=== PATIENT | male | born 1980 | race Caucasian/White ===

== ENCOUNTER 2017-04-28 19:57 | Emergency (ER) | payer MEDICARE, MEDICAID, SELFPAY ==
[2017-04-28 19:57] VITALS: BP 140/87; PULSE 109; RESP 15; TEMP 36.7; BMI 18.6
--- NOTE | 2017-04-28 20:15 | ED.VISSUMM ---
- ER Visit Summary Date of Service: 04/28/17 Chief Complaint: [] Malaise, narcotic withdrawal History of Present Illness: The patient is a 37 M [] history of Crohn's presents with symptoms of narcotic withdrawal after discontinuing his methadone use 3 days ago. Patient reports he decided he no longer wanted to take methadone and quit on his own. He reports being provided clonidine tablets to help with his withdrawal symptoms from his pain management doctor. Patient reports he is here for symptom relief. Reports mild abdominal discomfort. Denies vomiting. Denies fevers. No other complaints at this time. Physical Examination: [] Afebrile, vital signs stable. Cardiovascular exam is regular rate and rhythm. Lungs are clear to auscultation. Abdomen is soft and nontender. No lower extremity edema. Test Results: [] CMP: Within normal limits. Alk phos mildly elevated at 191. Emergency Department Course and Treatment: [] Patient given intravenous fluids, Phenergan, Toradol, Ativan. On serial exam patient had improvement of symptoms. Patient was discharged with a short-term solution for Phenergan. Treatment Plan: [] Follow-up with chest painting leader. Disposition: [] Discharge, stable. Impression: [] Narcotic withdrawal Nausea history of Crohn's This note was generated with [employer] dictation software. It may contain incorrect words, spelling, and punctuation that were not noted in review of the chart prior to signing ED Disposition - Plan for ED Patient: Chief Complaint: General Illness Referrals: Fran Walker DO [Primary Care Provider] -
[2017-04-28] MEDS: 0.9% Normal Saline 1,000 ML 1000 ML IV (20:18)
[2017-04-28] MEDS: Ketorolac 30 MG/ML Syringe IV (20:24)
[2017-04-28] MEDS: LORazepam 2 MG/ML Syringe 1 MG IV (20:25)
[2017-04-28 20:41] LABS: ALB/GLOB Ratio 0.9 RATIO (0.9-2.4); AST(SGOT) 26 U/L (15-37); Alanine Aminotransfer ALT/SGPT 65 U/L (16-61); Albumin, Serum 3.7 g/dL (3.2-5.0); Alkaline Phosphatase 191 U/L (45-117); Anion Gap 9 (5-15); BUN 8 mg/dL (7-18); BUN/Creat Ratio 8.8 RATIO (10-20); Calcium,Total 8.8 mg/dL (8.5-10.1); Chloride 108 mmol/L (98-107); EST Glomerular Filtration Rate 101 mL/min (>60); Est Glom Filt Rate - Afr Amer 123 mL/min (>60); Estimated Creatinine Clearance 84.52 ml/min; Globulin 4.2 g/dL (2.2-4.2); Glucose 136 mg/dL (74-106); Potassium 3.6 mmol/L (3.5-5.1); Protein, Total 7.9 g/dL (6.4-8.2); Sodium Level 141 mmol/L (136-145)
[2017-04-28 20:59] VITALS: BP 112/76; PULSE 81; RESP 21; O2SAT 96
--- NOTE | 2017-04-28 21:15 | ED.DEP ---
ED Disposition - Plan for ED Patient: Disposition: Home or Assisted Living Chief Complaint: General Illness Instructions: ED Withdrawal Narcotic Prescriptions: ProMETHAzine [Phenergan] 25 mg PO Q4H PRN PRN #20 tab PRN Reason: Nausea Referrals: Fran Walker DO [Primary Care Provider] -
[2017-04-28 21:34] VITALS: BP 124/83; PULSE 87; RESP 16; O2SAT 97
== END 2017-04-28 21:36 | disposition home or self-care (01) ==
PROVIDERS: Emergency Provider Emergency Medicine; Family Provider Student in an Organized Health Care Education/Training Program; PCP Student in an Organized Health Care Education/Training Program
DX: F11.23 Opioid dependence with withdrawal (principal); R11.0 Nausea; K50.90 Crohn's disease, unspecified, without complications; F32.9 Major depressive disorder, single episode, unspecified; Z72.0 Tobacco use; Z79.899 Other long term (current) drug therapy
CPT/HCPCS: 80053; 96361; 96374; 96375; 99284; J7030

== ENCOUNTER 2022-09-14 09:15 | Emergency (ER) | payer MEDICARE, MEDICAID, SELFPAY ==
[2022-09-14 09:17] VITALS: BP 125/91; PULSE 88; RESP 20; TEMP 35.9; O2SAT 100; BMI 24.3
--- NOTE | 2022-09-14 09:44 | CT_ITS ---
STUDY: CT ABDOMEN AND PELVIS WITHOUT CONTRAST REASON FOR EXAM: Male, 42 years old. Flank pain RADIATION DOSAGE (If Supplied By Facility): CTDIvol = ( 6.04 ) mGy, DLP = ( 314.11 ) mGycm TECHNIQUE: Transaxial images were obtained from the dome of the diaphragm to the symphysis pubis without oral contrast, and without intravenous contrast. Sagittal and coronal images were reconstructed. Individualized dose optimization techniques were used for this CT. COMPARISON: 2017 FINDINGS: The visualized lung bases are unremarkable. The visualized portions of the heart are within normal limits. Normal liver. Normal gallbladder and extrahepatic biliary system. Normal spleen. Normal pancreas. Normal bilateral adrenal glands. Right kidney shows mild hydronephrosis and hydroureter without perinephric or periureteral inflammatory stranding. Findings due to a 3 mm stone in the distal right ureter seen on axial image 131 and coronal recon image 60. Left kidney is free of obstructive uropathy or suspicious solid renal lesion. Normal visualized stomach. Normal small intestine. Normal colon. There are surgical clips in the region of the appendix consistent with a prior appendectomy. Normal abdominal aorta. Normal inferior vena cava. Normal retroperitoneum. Normal urinary bladder. Normal abdominal wall. Normal osseous structures. CT/Abdomen/Pelvis without Cont IMPRESSION: 3 mm calcification in the distal right ureter causing mild right hydronephrosis and hydroureter without perinephric or periureteral inflammatory stranding Electronically Signed: Martinez Norton MD at 10:56 EDT ,
--- NOTE | 2022-09-14 09:45 | ED.VIS.GI ---
HPI HPI - GI History of Present Illness Chief Complaint: Abd Pain Narrative Narrative: 42-year-old male, past medical history of Crohn disease, states he has not taken anything for his Crohn disease after he had surgery at [facility] 3 years ago, presents with sudden onset of right flank pain radiating towards his groin. Symptoms began at 730 this morning, around 2 hours ago. He denies any fevers or chills. No nausea or vomiting. No diarrhea. No hematuria or dysuria. He states its not does not feel like his Crohn disease. He denies any exacerbating or alleviating factors. Sometimes the pain is sharp and stabbing, but other dull and achy mainly in his right flank towards his right hip area and towards his pelvis. He thought that it may have been improving, but presents via EMS because of the continued right flank pain. PFSH PFSH Home Medications alprazolam 1 mg tablet (Xanax) 1 mg PO TID 10/20/14 [History Last Taken 11/02/14] methadone 10 mg tablet 5 mg PO Q4H 10/20/14 [History Last Taken 11/02/14] quetiapine 50 mg tablet (Seroquel) 50 mg PO QHS 11/02/14 [History Last Taken 11/01/14] sertraline 25 mg tablet (Zoloft) 25 mg PO QHS 11/02/14 [History Last Taken 11/01/14] polyethylene glycol 3350 17 gram oral powder packet 17 g PO DAILY PRN Constipation 03/21/15 [History Last Taken Unknown] adalimumab 40 mg/0.8 mL subcutaneous syringe kit (Humira) 40 mg SQ Q14D 03/28/17 [History Last Taken Unknown] promethazine 25 mg tablet 25 mg PO Q4H PRN PRN Nausea #20 tabs 04/28/17 [Rx Last Taken Unknown] Allergy/AdvReac Type Severity Reaction Status Date / Time infliximab [From Remicade] Allergy Hives Verified 09/14/22 09:16 Social History Smoking Status: Current every day smoker tobacco type: cigarettes ROS ROS ED ROS Narrative Constitutional: No fever, no chills. HEENT: No sore throat. No neck pain. No loss of vision. No rhinorrhea. Cardiovascular: No chest pain. No palpitations. No pedal edema. Respiratory: No cough, no shortness of breath. Abdominal: Right flank pain. No nausea. No vomiting. Genitourinary: No dysuria. No hematuria. Musculoskeletal: No myalgias. No arthralgias. Neurologic: No headaches. No dizziness. No lightheadedness. Skin: No rash. No change in color. Psychiatric: No depression. No anxiety. EXAM Physical Exam Narrative Exam Narrative: Afebrile. Vital signs noted. HEENT: Normocephalic. Atraumatic. PERRL, EOMI. Neck soft and supple. No point tenderness or step off. Cardiovascular: Regular rate and rhythm. No murmurs, rubs, or gallops appreciated. Respiratory: No tachypnea. Lungs clear to auscultation bilaterally. Gastrointestinal: Abdomen soft, nontender, with normoactive bowel sounds. No rebound or guarding. Neurological: Awake. Alert. Nonfocal, nonlateralizing. Skin: No rash. Normal color. No pallor. Musculoskeletal: No pedal edema. Full range of motion extremities. Const Vital Signs: 09/14/22 09:17 09/14/22 11:15 Temperature 96.7 F L Temperature Source Temporal Pulse Rate 88 Respiratory Rate 20 H 18 Blood Pressure 125/91 H Blood Pressure Mean 102 Pulse Ox 100 Oxygen Delivery Method Room Air MDM MDM MDM Narrative Medical decision making narrative: Viewed the prior records. Patient states he had an appendectomy with his bowel surgery, hence I am not concerned for appendicitis. In the differential is also ureterolithiasis versus Crohn exacerbation, but he is not having the same pain as he did with his Crohn disease. I do feel that CT imaging is warranted in this case. He was initially given Toradol and IV fluids at 250 mL/h. I will check a urinalysis along with CBC and BMP. I reviewed the patient's laboratory work, he has slightly elevated white count of 12.5 which I think is nonspecific, hemoglobin normal at 14.8, hematocrit 45.5, chloride 111 and slightly elevated but normal sodium of 141, potassium normal at 3.6. Urinalysis is positive for occult blood but negative nitrites, 25-50 RBCs with 0-5 white cells. I do not feel that antibiotics are indicated. I reviewed the CT imaging and reviewed the CT report which shows that there is a 3 mm calculus in the distal ureter on the right causing hydronephrosis and hydroureter. When I went to inform the patient of his test results, it looks as if he has eloped from the emergency department. His IV bag was present and his gown was on the bed. Plan was going to be to have him follow-up with urology and for me to write him pain medications. However, patient eloped from the emergency department prior to hearing his results and formal discharge. Patient had been in stable condition. History & Record Review Additional record(s) reviewed:: Prior ED visit Lab Data Attestation: I reviewed the patient's lab results. Labs: Laboratory Results - last 24 hr 09/14/22 09/14/22 09/14/22 09:50 09:50 10:21 WBC 12.5 H RBC 4.93 Hgb 14.8 Hct 45.5 MCV 92.3 MCH 30.0 MCHC 32.5 RDW Std Deviation 46.5 H RDW Coeff of Andre 13.8 Plt Count 372 MPV 9.3 Immature Gran % (Auto) 0.500 Neut % (Auto) 79.8 H Lymph % (Auto) 10.2 L [place] % (Auto) 6.6 Eos % (Auto) 2.4 Baso % (Auto) 0.5 Absolute Neuts (auto) 10.0 H Absolute Lymphs (auto) 1.28 Nucleated RBC % 0 Sodium 141 Potassium 3.6 Chloride 111 H Carbon Dioxide 24.0 Anion Gap 6 BUN 11 Creatinine 1.01 Estim Creat Clear Calc 81.41 Est GFR (MDRD) Af Amer 105 Est GFR (MDRD) Non-Af 87 BUN/Creatinine Ratio 10.9 Glucose 94 Calcium 7.7 L Urine Color Yellow Urine Clarity Sl. Cloudy Urine pH 6.5 Ur Specific [place] 1.020 Urine Protein 30 H Urine Glucose (UA) Normal Urine Ketones 5 H Urine Occult Blood 250 H Urine Nitrite Negative Urine Bilirubin 1 H Urine Urobilinogen 1 H Ur Leukocyte Esterase 25 H Urine RBC 25-50 SEEN Urine WBC 0-5 SEEN Ur Squamous Epith Cells 0 SEEN Urine Bacteria 0 SEEN Urine Mucus 2+ Radiography Diagnostic Testing: Clinical Impression(s) from Imaging Studies Abdomen/Pelvis CT 09/14/22 09:44 IMPRESSION: 3 mm calcification in the distal right ureter causing mild right hydronephrosis and hydroureter without perinephric or periureteral inflammatory stranding Electronically Signed: Martinez Norton MD at 10:56 EDT , Discharge Plan Triage Chief Complaint: Abd Pain ED Provider: Rui Bartholomew Dx/Rx/DC Orders Clinical Impression: Ureteral calculus, right, Eloped from emergency department Instructions: ED Kidney Stone w/ Colic Prescriptions: No Action alprazolam [Xanax] 1 MG tablet 1 mg PO TID Label Comments: ANXIETY methadone 10 MG tablet 5 mg PO Q4H Label Comments: PAIN sertraline [Zoloft] 25 MG tablet 25 mg PO QHS Label Comments: DEPRESSION quetiapine [Seroquel] 50 MG tablet 50 mg PO QHS Label Comments: mood polyethylene glycol 3350 17 GM powder in packet 17 g PO DAILY PRN (Reason: Constipation) Label Comments: constipation adalimumab [Humira] 40 MG/0.8 ML syringe kit 40 mg SQ Q14D promethazine 25 MG tablet 25 mg PO Q4H PRN PRN (Reason: Nausea) Qty: 20 0RF Primary Care Provider: Care Physician,No Primary Referrals: Care Physician,No Primary [Primary Care Provider] - Disposition Disposition: Elopement
[2022-09-14] MEDS: 0.9% Normal Saline 1,000 ML 250 ML IV (10:06)
[2022-09-14 10:07] LABS: Absolute Lymphocyte Count 1.28 X10^3/uL (0.83-4.51); Basophil# 0.06 X10^3/uL; Basophil% 0.5 % (0-1); Eosinophils% 2.4 % (0-5); Hematocrit 45.5 % (40-54); Hemoglobin 14.8 g/dL (13.0-16.5); Lymphocyte # 1.28 X10^3/ul (0.83-4.51); Lymphocyte % 10.2 % (19-41); Mean Corp Hgb Conc 32.5 g/dL (32-36); Mean Corpuscular Volume 92.3 fL (80-94); Mean Platelet Vol. 9.3 fl (6.2-12.0); Monocyte# 0.83 X10^3/uL; Monocyte% 6.6 % (0-10); NRBC Flagged by Analyzer 0 % (0-5); Neutrophil # 9.99 X10^3/uL (2.7-7.7); Neutrophil % 79.8 % (47-70); Platelet Count 372 K/mm3 (150-450); RBC Distribution Width CV 13.8 % (11.6-14.6); RBC Distribution Width SD 46.5 fl (35.1-43.9); Red Blood Count 4.93 M/mm3 (4.6-6.2); White Blood Count 12.5 K/mm3 (4.4-11.0)
[2022-09-14] MEDS: Ketorolac 30 MG/ML Syringe IV (10:07)
[2022-09-14 10:22] LABS: Anion Gap 6 (5-15); BUN 11 mg/dL (7-18); BUN/Creat Ratio 10.9 RATIO (10-20); Calcium,Total 7.7 mg/dL (8.5-10.1); Chloride 111 mmol/L (98-107); Creatinine, Serum 1.01 mg/dL (0.70-1.30); EST Glomerular Filtration Rate 87 mL/min (>60); Est Glom Filt Rate - Afr Amer 105 mL/min (>60); Estimated Creatinine Clearance 81.41 ml/min; Glucose 94 mg/dL (74-106); Potassium 3.6 mmol/L (3.5-5.1); Sodium Level 141 mmol/L (136-145)
[2022-09-14 10:29] LABS: Bacteria 0 SEEN /hpf (None Seen); Squamous Epithelial Cells - UA 0 SEEN /hpf (0-5)
[2022-09-14 10:30] LABS: Color, Urine Yellow (Yellow); Glucose, Dipstick Normal (Normal); Ketone-Dipstick 5 mg/dl (Negative); Leukocyte Esterase-Dipstick 25 /ul (Negative); Nitrite-Dipstick Negative (Negative); Occult Blood-Urine 250 /ul (Negative); Protein-Dipstick 30 mg/dl (Negative); Urine Clarity Sl. Cloudy (Clear); Urine Urobilinogen 1 mg/dl (Normal); Urine pH 6.5 (5.0 - 8.0)
[2022-09-14 10:31] LABS: Urine Bilirubin Dipstick 1 mg/dL (Negative)
[2022-09-14 10:39] LABS: Mucous, Urine 2+ /hpf (<or=2+); Red Blood Cells-Urine 25-50 SEEN /hpf (0-5); White Blood Cells 0-5 SEEN /hpf (0-5)
[2022-09-14 11:15] VITALS: RESP 18
--- NOTE | 2022-09-14 12:25 | ED.RN ---
THIS RN TAKES OVER CARE. IN TO ROOM. PT NOT IN ROOM. IV LAYING ON BED. DR WRIGHT
== END 2022-09-14 12:20 | disposition left against medical advice (07) ==
PROVIDERS: Emergency Provider Emergency Medicine; Visit Provider Emergency Medicine
DX: N13.2 Hydronephrosis with renal and ureteral calculous obstruction (principal); N13.4 Hydroureter; F17.210 Nicotine dependence, cigarettes, uncomplicated; Z87.19 Personal history of other diseases of the digestive system; Z53.29 Procedure and treatment not carried out because of patient's decision for other reasons
CPT/HCPCS: 74176; 80048; 81001; 85025; 96361; 96374; 99285; J7030

== ENCOUNTER 2022-09-24 07:10 | Emergency (ER) | payer MEDICARE, MEDICAID, SELFPAY ==
[2022-09-24 07:11] VITALS: BP 153/111; PULSE 115; RESP 18; TEMP 36.6; O2SAT 98; BMI 21.1
--- NOTE | 2022-09-24 07:20 | CT_ITS ---
STUDY: CT ABDOMEN AND PELVIS WITHOUT CONTRAST REASON FOR EXAM: Male, 42 years old. RLQ PAIN, HX CROHNS RADIATION DOSAGE (If Supplied By Facility): CTDIvol = ( 6.04 ) mGy, DLP = ( 302.02 ) mGycm TECHNIQUE: Transaxial images were obtained from the dome of the diaphragm to the symphysis pubis without oral contrast, and without intravenous contrast. Sagittal and coronal images were reconstructed. Individualized dose optimization techniques were used for this CT. COMPARISON: CT of abdomen and pelvis dated September 14, 2022 FINDINGS: The 3.6 mm stone previously seen in the right distal ureter has been passed into the right side of the bladder since the prior exam. Mild right hydronephrosis and hydroureter are present. No additional radiopaque stones are seen in the right kidney or right ureter. Normal left kidney. The visualized lung bases are unremarkable. The visualized portions of the heart are within normal limits. There is decreased attenuation of the liver consistent with steatosis. Normal gallbladder and extrahepatic biliary system. Normal spleen. Normal pancreas. Normal bilateral adrenal glands. Normal visualized stomach. Prior right hemicolectomy. Mild edema and thickening in the wall of the distal ileum up to the anastomosis at the hemicolectomy site. Otherwise normal remaining small bowel loops. Mild to moderate thickening of the rectosigmoid mucosa down to the rectum is also likely sequela of chronic inflammatory bowel disease. These findings are consistent with sequela of chronic inflammatory bowel disease. No definitive acute inflammation is seen. No free air or abscess is present. Normal abdominal aorta. Normal inferior vena cava. Normal retroperitoneum. Normal urinary bladder. Normal abdominal wall. Normal osseous structures. CT/Abdomen/Pelvis without Cont IMPRESSION: 1. The 3.6 mm stone previously seen in the right distal ureter has been passed into the right side of the bladder since the prior exam. Mild right hydronephrosis and hydroureter are present. No additional radiopaque stones are seen in the right kidney or right ureter. Normal left kidney. Electronically Signed: Angel Smart MD at 8:59 EDT ,
--- NOTE | 2022-09-24 07:21 | ED.VIS.GI ---
HPI HPI - GI History of Present Illness Chief Complaint: Abd Pain Detail of Chief Complaint: Sudden onset right lower flank pain x1 hour. Informant: patient Abdominal Pain/Flank Pain Onset: Today Context: Sudden Onset Timing: Continuous Quality: Sharp and Stabbing Location: Right Flank Current Severity: Moderate Maximum Severity: Moderate Worsened by: Nothing Relieved by: Nothing Nausea/Vomiting/Emesis GI Symptom: Positive for Nausea Severity: Mild Diarrhea/Melena/Hematochezia GI Symptom: Negative for Diarrhea, Melena or Hematochezia Associated Symptoms Associated Symptoms: Negative for Dysuria, Frequency or Hematuria Narrative Narrative: 42-year-old male history of a kidney stone 2 to 3 weeks ago, Crohn's disease and chronic pain. Complaining of right lower flank pain an hour ago. Sudden onset. Same as 2 to 3 weeks ago. Mild nausea no vomiting or diarrhea. No dysuria or fever. Prior history of 3 partial small bowel resection secondary to Crohn's. Prior appendectomy. Prior similar symptoms: Yes Recent Illness/Hospitalization: No PFSH PFSH Home Medications alprazolam 1 mg tablet (Xanax) 1 mg PO TID 10/20/14 [History Last Taken 11/02/14] methadone 10 mg tablet 5 mg PO Q4H 10/20/14 [History Last Taken 11/02/14] quetiapine 50 mg tablet (Seroquel) 50 mg PO QHS 11/02/14 [History Last Taken 11/01/14] sertraline 25 mg tablet (Zoloft) 25 mg PO QHS 11/02/14 [History Last Taken 11/01/14] polyethylene glycol 3350 17 gram oral powder packet 17 g PO DAILY PRN Constipation 03/21/15 [History Last Taken Unknown] adalimumab 40 mg/0.8 mL subcutaneous syringe kit (Humira) 40 mg SQ Q14D 03/28/17 [History Last Taken Unknown] promethazine 25 mg tablet 25 mg PO Q4H PRN PRN Nausea #20 tabs 04/28/17 [Rx Last Taken Unknown] Allergy/AdvReac Type Severity Reaction Status Date / Time infliximab [From Remicade] Allergy Hives Verified 09/24/22 07:13 Social History Smoking Status: Current every day smoker tobacco type: cigarettes ROS ROS ED ROS Narrative Right flank pain. Mild nausea. Review of Systems ROS Unobtainable: Denies due to encephalopathy Constitutional Constitutional ED: Denies chills or fever(s) ENT ENT ED: Denies ear pain Cardiovascular Cardiovascular: Denies chest pain Respiratory/Chest Respiratory/Chest: Denies cough Gastrointestinal Gastrointestinal: Reports abdominal pain and nausea; Denies constipation, diarrhea, melena or vomiting Genitourinary Genitourinary ED: Denies dysuria or hematuria Musculoskeletal Musculoskeletal: Denies arthralgias Integumentary Denies abscess Neurologic Neurologic: Denies headache(s) Psychiatric Psychiatric: Denies anxiety Endocrine Endocrinology: Denies polydipsia Hematologic/Lymphatic Hematologic/Lymphatic: Denies easy bleeding Allergic/Immunologic Allergic/Immunologic ED: Denies mouth swelling EXAM Physical Exam Narrative Exam Narrative: 6-year-old male complaining of pain. Vital signs are stable and afebrile. He does not look septic or toxic. H EENT exam unremarkable. Moist with membranes. Lungs are clear. Heart tachycardic rate about 110 no murmur. Chest wall nontender. Abdomen soft, nontender, nondistended, normal bowel sounds without peritoneal signs. He complains of pain in the right lower quadrant is nontender. Nontender exam. Moving all 4 extremities. Calves are nontender without edema. Back is nontender. Right flank is nontender. He is awake and alert. Walks to the bathroom without any difficulty. Const Vital Signs: 09/24/22 07:11 Temperature 97.8 F Temperature Source Temporal Pulse Rate 115 H Respiratory Rate 18 Blood Pressure 153/111 H Blood Pressure Mean 125 Pulse Ox 98 Oxygen Delivery Method Room Air Positive well nourished and well developed; Negative for obese, cachectic, contractures or unkempt General Appearance ED: well developed and NAD; Negative for unkempt, cachectic, contractures or pallor Nutritional Appearance: Negative for cachectic or obese HEENT Reports moist mucous membranes normocephalic and atraumatic; Negative for trauma or tenderness Eyes PERRL and EOMs intact bilaterally General Eye ED: Negative for pale conjunctiva or scleral icterus Neck no lymphadenopathy, supple and no JVD General: Negative for tenderness Lymph Lymphatic: Negative for other Resp normal respiratory effort and clear to auscultation bilaterally Effort and Inspection: Negative for respiratory distress Auscultation: Negative for rales, rhonchi or wheezes Cardio regular rhythm, S1 normal heart sound, S2 normal heart sound and no murmurs; Negative for regular rate Rate: tachycardic GI non-tender, non-distended and no masses Inspection: Negative for abdominal distention Auscultation: normoactive bowel sounds Palpation: soft; Negative for tender or guarding Back/Spine no CVA tenderness General Back: Negative for CVA tenderness Cervical Spine: Negative for cervical spine tenderness Thoracic Spine / Upper Back: Negative for thoracic spinal tenderness Lumbar Spine / Lower Back: Negative for lumbar spinal tenderness Coccyx: Negative for other Extremity full ROM General Extremety ED: Negative for edema or tenderness General Extremity: Negative for edema Neuro CN's II-XII intact bilaterally and moves all extremities Sensorium / Orientation: alert, oriented to person, oriented to place and oriented to time; Negative for orientation impaired, confused, lethargic or stuporous Psych mental status grossly normal and thought process normal Appearance: Negative for unkempt Attitude: No agitated Mood & Affect: anxious; Negative for depressed Skin no wounds General Skin Exam: Negative for jaundice or pallor Lesions: no lesions Rashes: no rashes Trauma: Negative for abrasion Nails: Negative for discolored MDM MDM MDM Narrative Medical decision making narrative: 42-year-old male history of Crohn's and prior kidney stone 2 to 3 weeks ago. With sudden onset right flank pain an hour ago this morning. Differential would include kidney stone, UTI versus other etiology. His appendix has been taken out. He has no signs of a bowel obstruction. CAT scan and labs are being obtained. He will be treated with Toradol and morphine for pain. Zofran for nausea. Repeat exam patient is doing well at 8:40 AM. Resting comfortably. Improved after medications. We discussed all his labs. Awaiting the CAT scan results. Patient doing well at 10:10 AM. Pain is resolved. Clinically looks well. We discussed all his test results and the CAT scan results. He will be discharged home. Motrin and Tylenol for pain. History & Record Review Discussion w/independent historian: Patient Lab Data Attestation: I reviewed the patient's lab results. Lab results narrative: CBC unremarkable white count 8.6. H&H of 14 and 41. Platelets 445. Electrolytes show sodium 135 gap of 4. BUN of 12 creatinine is elevated 1.41. Glucose 118. Urinalysis shows 25-50 red cells no white cells. No bacteria no nitrites. CAT scan showed a 3.6 mm kidney stone that just passed into the bladder. Labs: Laboratory Results - last 24 hr 09/24/22 09/24/22 07:38 07:39 WBC 8.6 RBC 4.81 Hgb 14.9 Hct 44.1 MCV 91.7 MCH 31.0 MCHC 33.8 RDW Std Deviation 43.8 RDW Coeff of Andre 13.0 Plt Count 445 MPV 9.4 Immature Gran % (Auto) 0.200 Neut % (Auto) 64.5 Lymph % (Auto) 17.7 L [place] % (Auto) 11.6 H Eos % (Auto) 5.4 H Baso % (Auto) 0.6 Absolute Neuts (auto) 5.5 Absolute Lymphs (auto) 1.52 Nucleated RBC % 0 Sodium 135 L Potassium 3.8 Chloride 109 H Carbon Dioxide 22.0 Anion Gap 4 L BUN 12 Creatinine 1.41 H Estim Creat Clear Calc 60.32 Est GFR (MDRD) Af Amer 71 Est GFR (MDRD) Non-Af 59 L BUN/Creatinine Ratio 8.5 L Glucose 118 H Calcium 8.9 Urine Color Yellow Urine Clarity Sl. Cloudy Urine pH 5.0 Ur Specific [place] 1.025 Urine Protein 100 H Urine Glucose (UA) Normal Urine Ketones 50 H Urine Occult Blood 250 H Urine Nitrite Negative Urine Bilirubin 3 H Urine Urobilinogen 4 H Ur Leukocyte Esterase 25 H Urine RBC 25-50 SEEN Urine WBC 0-5 SEEN Ur Squamous Epith Cells 0 SEEN Urine Bacteria 0 SEEN Urine Mucus 2+ Radiography Diagnostic Testing: Clinical Impression(s) from Imaging Studies Abdomen/Pelvis CT 09/24/22 07:20 IMPRESSION: 1. The 3.6 mm stone previously seen in the right distal ureter has been passed into the right side of the bladder since the prior exam. Mild right hydronephrosis and hydroureter are present. No additional radiopaque stones are seen in the right kidney or right ureter. Normal left kidney. Electronically Signed: Angel Smart MD at 8:59 EDT Reading Location ID and State: [facility] / [place] , Service support , Discharge Plan Triage Chief Complaint: Abd Pain ED Provider: Antwon Dunn Dx/Rx/DC Orders Clinical Impression: Acute right flank pain, Hx of Crohn's disease, Hx of appendectomy, History of kidney stones, Kidney stone on right side Instructions: ED Kidney Stone w/ Colic Prescriptions: No Action alprazolam [Xanax] 1 MG tablet 1 mg PO TID Patient Comments: ANXIETY methadone 10 MG tablet 5 mg PO Q4H Patient Comments: PAIN sertraline [Zoloft] 25 MG tablet 25 mg PO QHS Patient Comments: DEPRESSION quetiapine [Seroquel] 50 MG tablet 50 mg PO QHS Patient Comments: mood polyethylene glycol 3350 17 GM powder in packet 17 g PO DAILY PRN (Reason: Constipation) Patient Comments: constipation adalimumab [Humira] 40 MG/0.8 ML syringe kit 40 mg SQ Q14D promethazine 25 MG tablet 25 mg PO Q4H PRN PRN (Reason: Nausea) Qty: 20 0RF Primary Care Provider: Care Physician,No Primary Referrals: Care Physician,No Primary [Primary Care Provider] - Activity Restrictions/Additional Instructions: Follow-up with your doctor if not improving. Return if worse. You had a kidney stone is now passing your bladder the pain should resolve. Motrin and Tylenol for pain. You should urinate the stone out in the next 1 to 3 days. Disposition Disposition: Home, Self Care
[2022-09-24] MEDS: Ketorolac 30 MG/ML Syringe IV (07:34)
[2022-09-24] MEDS: Morphine 4 MG/ML Syringe IV (07:34)
[2022-09-24] MEDS: Ondansetron 4 MG/2 ML Vial IV (07:34)
[2022-09-24 07:45] LABS: Bacteria 0 SEEN /hpf (None Seen); Squamous Epithelial Cells - UA 0 SEEN /hpf (0-5)
[2022-09-24 07:50] LABS: Absolute Lymphocyte Count 1.52 X10^3/uL (0.83-4.51); Absolute Neutrophil Count 5.5 X10^3/uL (2.0-7.7); Basophil# 0.05 X10^3/uL; Basophil% 0.6 % (0-1); Eosinophil# 0.46 X10^3/uL; Eosinophils% 5.4 % (0-5); Hematocrit 44.1 % (40-54); Hemoglobin 14.9 g/dL (13.0-16.5); Lymphocyte # 1.52 X10^3/ul (0.83-4.51); Lymphocyte % 17.7 % (19-41); Mean Corp Hgb Conc 33.8 g/dL (32-36); Mean Corpuscular Volume 91.7 fL (80-94); Mean Platelet Vol. 9.4 fl (6.2-12.0); Monocyte# 0.99 X10^3/uL; Monocyte% 11.6 % (0-10); NRBC Flagged by Analyzer 0 % (0-5); Neutrophil # 5.53 X10^3/uL (2.7-7.7); Neutrophil % 64.5 % (47-70); Platelet Count 445 K/mm3 (150-450); RBC Distribution Width SD 43.8 fl (35.1-43.9); Red Blood Count 4.81 M/mm3 (4.6-6.2); White Blood Count 8.6 K/mm3 (4.4-11.0)
[2022-09-24 07:54] LABS: Color, Urine Yellow (Yellow); Glucose, Dipstick Normal (Normal); Ketone-Dipstick 50 mg/dl (Negative); Leukocyte Esterase-Dipstick 25 /ul (Negative); Nitrite-Dipstick Negative (Negative); Occult Blood-Urine 250 /ul (Negative); Protein-Dipstick 100 mg/dl (Negative); Specific Gravity, Urine 1.025 (1.002-1.030); Urine Clarity Sl. Cloudy (Clear); Urine Urobilinogen 4 mg/dl (Normal)
[2022-09-24 08:00] LABS: Anion Gap 4 (5-15); BUN 12 mg/dL (7-18); BUN/Creat Ratio 8.5 RATIO (10-20); Calcium,Total 8.9 mg/dL (8.5-10.1); Chloride 109 mmol/L (98-107); Creatinine, Serum 1.41 mg/dL (0.70-1.30); EST Glomerular Filtration Rate 59 mL/min (>60); Est Glom Filt Rate - Afr Amer 71 mL/min (>60); Estimated Creatinine Clearance 60.32 ml/min; Glucose 118 mg/dL (74-106); Potassium 3.8 mmol/L (3.5-5.1); Sodium Level 135 mmol/L (136-145)
[2022-09-24 08:11] LABS: Urine Bilirubin Dipstick 3 mg/dL (Negative)
[2022-09-24 08:14] LABS: Mucous, Urine 2+ /hpf (<or=2+); Red Blood Cells-Urine 25-50 SEEN /hpf (0-5); White Blood Cells 0-5 SEEN /hpf (0-5)
[2022-09-24 10:10] VITALS: BP 130/76; PULSE 78; RESP 16; TEMP 36.6; O2SAT 100
== END 2022-09-24 10:26 | disposition home or self-care (01) ==
PROVIDERS: Emergency Provider Emergency Medicine; Visit Provider Emergency Medicine
DX: N13.2 Hydronephrosis with renal and ureteral calculous obstruction (principal); K50.90 Crohn's disease, unspecified, without complications; F17.210 Nicotine dependence, cigarettes, uncomplicated; Z87.442 Personal history of urinary calculi; Z90.49 Acquired absence of other specified parts of digestive tract
CPT/HCPCS: 74176; 80048; 81001; 85025; 96374; 96375; 99283; A4216; J2405